=== PATIENT | male | born 1985 | race Caucasian/White ===

== ENCOUNTER 2018-12-03 16:16 | Emergency (ER) | payer BC, OTHER ==
[2018-12-03] MEDS ORDERED: ESCI20TA38 PO (16:25)
--- NOTE | 2018-12-03 16:57 | ER Report ---
History and Physical Time Seen By MD: 16:57 Hx. of Stated Complaint: HAD AN ARGUMENT WITH . SHE CALLED THE POLICE AND WAS EMERGENCY DETAINED HPI/ROS CHIEF COMPLAINT: Suicidal ideation HISTORY OF PRESENT ILLNESS: 33-year-old male patient presents to emergency room with complaint of suicidal ideation. Patient was brought in by the police. History obtained from the police officers indicate that the patient had been h aving a hard time. He lost a child last year in December. Pain is and had an argument and he drove up. [place]. Patient currently lives in [place]. Patient was sending text messages to his as well as to other people saying goodbye and apologizing for any shortcomings he had. He sent text to his stating that he had a belt around his neck and he would feel good to tighten, had his eyes roll back of his head and just go to sleep. He also sent her a message stating that his little girl needed her father to protect her and keep her safe. She became concerned and contacted the police. Patient refuses to answer any questions or to be involved in the history. REVIEW OF SYSTEMS: Unable to obtain as patient refuses at this time. Allergies: Coded Allergies: Penicillins (Verified Allergy, Mild, RASH , 12/03/18) Home Meds Reported Medications Escitalopram Oxalate (LEXAPRO) 20 Mg Tablet, 10 MG PO QDAY, TAB 12/03/18 Past Medical/Surgical History Patient has a past medical history of substance abuse, alcohol abuse, depression. Patient denies any surgical history. Reviewed Nurses Notes: Yes Hx Substance Use Disorder: Yes Hx Alcohol Use: Yes Constitutional Vital Sign - Last 24 Hours 12/03/18 12/03/18 16:17 18:50 Temp 98.2 Pulse 102 85 Resp 16 16 B/P (MAP) 132/97 132/82 (99) Pulse Ox 92 95 O2 Delivery Room Air Room Air Physical Exam I was unable to obtain a physical as patient refused any physical evaluation. Patient's rate speech was slow, very flat, patient refused any eye contact. Medical Decision Making Data Points Result Diagram: 12/03/18 1716 12/03/18 1716 Laboratory Hematology Test 12/03/18 17:16 12/03/18 18:45 Red Blood Count 5.61 M/uL (4.00-5.60) Mean Corpuscular Volume 89.6 fL (80.0-96.0) Mean Corpuscular Hemoglobin 30.8 pg (26.0-33.0) Mean Corpuscular Hemoglobin Concent 34.4 g/dL (32.0-36.0) Red Cell Distribution Width 12.5 % (11.5-14.5) Mean Platelet Volume 9.6 fL (7.2-11.1) Neutrophils (%) (Auto) 50.5 % (39.4-72.5) Lymphocytes (%) (Auto) 37.2 % (17.6-49.6) Monocytes (%) (Auto) 8.7 % (4.1-12.4) Eosinophils (%) (Auto) 0.6 % (0.4-6.7) Basophils (%) (Auto) 3.0 % (0.3-1.4) Nucleated RBC Relative Count (auto) 0.1 /100WBC Neutrophils # (Auto) 2.7 K/uL (2.0-7.4) Lymphocytes # (Auto) 2.0 K/uL (1.3-3.6) Monocytes # (Auto) 0.5 K/uL (0.3-1.0) Eosinophils # (Auto) 0.0 K/uL (0.0-0.5) Basophils # (Auto) 0.2 K/uL (0.0-0.1) Nucleated RBC Absolute Count (auto) 0.00 K/uL Sodium Level 145 mmol/L (137-145) Potassium Level 3.9 mmol/L (3.5-5.0) Chloride Level 105 mmol/L (98-107) Carbon Dioxide Level 25 mmol/L (22-30) Blood Urea Nitrogen 13 mg/dl (9-21) Creatinine 0.90 mg/dl (0.66-1.25) Glomerular Filtration Rate Calc > 60.0 Random Glucose 135 mg/dl (75-110) Calcium Level 9.3 mg/dl (8.4-10.2) Magnesium Level 2.3 mg/dl (1.7-2.2) Total Bilirubin 0.4 mg/dl (0.2-1.3) Aspartate Amino Transf (AST/SGOT) 27 U/L (0-35) Alanine Aminotransferase (ALT/SGPT) 37 U/L (0-56) Alkaline Phosphatase 60 U/L (0-126) Total Protein 7.5 g/dl (6.3-8.2) Albumin 4.9 g/dl (3.5-5.0) Thyroid Stimulating Hormone (TSH) 1.13 uIU/ml (0.46-4.68) Salicylates Level < 10 mg/L Salicylate Last Dose Date unk Acetaminophen Level < 10 ug/ml Serum Alcohol 197 mg/dl Urine Color Yellow Urine Clarity Slightly-cloudy Urine pH 5.0 pH (4.8-9.5) Urine Specific [place] 1.024 Urine Protein Negative mg/dL (NEGATIVE) Urine Glucose (UA) Negative mg/dL (NEGATIVE) Urine Ketones Trace mg/dL (NEGATIVE) Urine Blood Negative (NEGATIVE) Urine Nitrite Negative (NEGATIVE) Urine Bilirubin Negative (NEGATIVE) Urine Urobilinogen Negative mg/dL (0.2-1.9) Urine Leukocyte Esterase Negative (NEGATIVE) Urine RBC 1 /HPF (0-2/HPF) Urine WBC 3 /HPF (0-5/HPF) Urine Squamous Epithelial Cells None /LPF (</=FEW) Urine Amorphous Crystals Few /HPF Urine Bacteria Few /HPF (NONE-FEW) Urine Hyaline Casts Few /LPF (NONE-FEW) Urine Mucus Few /HPF (NONE-FEW) Urine Opiates Screen Negative Urine Barbiturates Screen Negative Ur Tricyclic Antidepressants Screen Negative Urine Phencyclidine Screen Negative Urine Amphetamines Screen Negative Urine Benzodiazepines Screen Negative Urine Cocaine Screen Negative Urine Cannabinoids Screen Negative Chemistry Test 12/03/18 17:16 12/03/18 18:45 White Blood Count 5.3 k/uL (4.5-11.0) Red Blood Count 5.61 M/uL (4.00-5.60) Hemoglobin 17.3 g/dL (14.0-18.0) Hematocrit 50.3 % (42.0-52.0) Mean Corpuscular Volume 89.6 fL (80.0-96.0) Mean Corpuscular Hemoglobin 30.8 pg (26.0-33.0) Mean Corpuscular Hemoglobin Concent 34.4 g/dL (32.0-36.0) Red Cell Distribution Width 12.5 % (11.5-14.5) Platelet Count 220 K/uL (150-450) Mean Platelet Volume 9.6 fL (7.2-11.1) Neutrophils (%) (Auto) 50.5 % (39.4-72.5) Lymphocytes (%) (Auto) 37.2 % (17.6-49.6) Monocytes (%) (Auto) 8.7 % (4.1-12.4) Eosinophils (%) (Auto) 0.6 % (0.4-6.7) Basophils (%) (Auto) 3.0 % (0.3-1.4) Nucleated RBC Relative Count (auto) 0.1 /100WBC Neutrophils # (Auto) 2.7 K/uL (2.0-7.4) Lymphocytes # (Auto) 2.0 K/uL (1.3-3.6) Monocytes # (Auto) 0.5 K/uL (0.3-1.0) Eosinophils # (Auto) 0.0 K/uL (0.0-0.5) Basophils # (Auto) 0.2 K/uL (0.0-0.1) Nucleated RBC Absolute Count (auto) 0.00 K/uL Glomerular Filtration Rate Calc > 60.0 Calcium Level 9.3 mg/dl (8.4-10.2) Magnesium Level 2.3 mg/dl (1.7-2.2) Total Bilirubin 0.4 mg/dl (0.2-1.3) Aspartate Amino Transf (AST/SGOT) 27 U/L (0-35) Alanine Aminotransferase (ALT/SGPT) 37 U/L (0-56) Alkaline Phosphatase 60 U/L (0-126) Total Protein 7.5 g/dl (6.3-8.2) Albumin 4.9 g/dl (3.5-5.0) Thyroid Stimulating Hormone (TSH) 1.13 uIU/ml (0.46-4.68) Salicylates Level < 10 mg/L Salicylate Last Dose Date unk Acetaminophen Level < 10 ug/ml Serum Alcohol 197 mg/dl Urine Color Yellow Urine Clarity Slightly-cloudy Urine pH 5.0 pH (4.8-9.5) Urine Specific [place] 1.024 Urine Protein Negative mg/dL (NEGATIVE) Urine Glucose (UA) Negative mg/dL (NEGATIVE) Urine Ketones Trace mg/dL (NEGATIVE) Urine Blood Negative (NEGATIVE) Urine Nitrite Negative (NEGATIVE) Urine Bilirubin Negative (NEGATIVE) Urine Urobilinogen Negative mg/dL (0.2-1.9) Urine Leukocyte Esterase Negative (NEGATIVE) Urine RBC 1 /HPF (0-2/HPF) Urine WBC 3 /HPF (0-5/HPF) Urine Squamous Epithelial Cells None /LPF (</=FEW) Urine Amorphous Crystals Few /HPF Urine Bacteria Few /HPF (NONE-FEW) Urine Hyaline Casts Few /LPF (NONE-FEW) Urine Mucus Few /HPF (NONE-FEW) Urine Opiates Screen Negative Urine Barbiturates Screen Negative Ur Tricyclic Antidepressants Screen Negative Urine Phencyclidine Screen Negative Urine Amphetamines Screen Negative Urine Benzodiazepines Screen Negative Urine Cocaine Screen Negative Urine Cannabinoids Screen Negative Toxicology Test 12/03/18 17:16 12/03/18 18:45 Salicylates Level < 10 mg/L Salicylate Last Dose Date unk Acetaminophen Level < 10 ug/ml Serum Alcohol 197 mg/dl Urine Opiates Screen Negative Urine Barbiturates Screen Negative Ur Tricyclic Antidepressants Screen Negative Urine Phencyclidine Screen Negative Urine Amphetamines Screen Negative Urine Benzodiazepines Screen Negative Urine Cocaine Screen Negative Urine Cannabinoids Screen Negative Urinalysis Test 12/03/18 18:45 Urine Color Yellow Urine Clarity Slightly-cloudy Urine pH 5.0 pH (4.8-9.5) Urine Specific [place] 1.024 Urine Protein Negative mg/dL (NEGATIVE) Urine Glucose (UA) Negative mg/dL (NEGATIVE) Urine Ketones Trace mg/dL (NEGATIVE) Urine Blood Negative (NEGATIVE) Urine Nitrite Negative (NEGATIVE) Urine Bilirubin Negative (NEGATIVE) Urine Urobilinogen Negative mg/dL (0.2-1.9) Urine Leukocyte Esterase Negative (NEGATIVE) Urine RBC 1 /HPF (0-2/HPF) Urine WBC 3 /HPF (0-5/HPF) Urine Squamous Epithelial Cells None /LPF (</=FEW) Urine Amorphous Crystals Few /HPF Urine Bacteria Few /HPF (NONE-FEW) Urine Hyaline Casts Few /LPF (NONE-FEW) Urine Mucus Few /HPF (NONE-FEW) ED Course/Re-evaluation ED Course Patient was admitted to an exam room, history and physical were obtained. Differential diagnoses were considered. I was unable to obtain a physical exam. Patient was not forthcoming with any history. I did discuss what is going on with the patient's . I did read through the patient's text messages which stated that he was going to strangle himself with a belt, that he needed to [facility], and that he was sorry but his demons win. I believe there is enough evidence to uphold the [facility]. [facility]. I discussed the case with Dr. Tolbert, psychiatrist, who agreed to accept the patient for admission. We discussed the lab work which was unremarkable. Patient had a negative drug screen, he had a blood alcohol of 179. Decision to Disposition Date: Dec 03, 2018 Decision to Disposition Time: 19:10 Depart Departure Latest Vital Signs Vital Signs Date Time Temp Pulse Resp B/P (MAP) Pulse Ox O2 Delivery O2 Flow Rate FiO2 12/03/18 18:50 98.2 85 16 132/82 (99) 95 Room Air Impression: Primary Impression: Suicidal ideation Condition: Condition Unchanged Disposition: XFER TO [facility] CESAR GUPTA Dec 03, 2018 16:57
[2018-12-03 17:24] LABS: PLATELET COUNT, AUTOMATED 220 K/uL (150-450)
[2018-12-03 18:50] VITALS: BP 132/82
--- NOTE | 2018-12-03 22:56 | BHS - Psychiatric Evaluation ---
ER - Title 25 MHE Evaluation Title 25 Evaluation Patient Detained By: Law Enforcement Referral Source: Patient's Date Patient Detained: Dec 03, 2018 Time Patient Detained: 16:04 Date Care Home Expires: Dec 06, 2018 Time Care Home Expires: 16:04 Legal Status: Police Hold: Yes Legal Status: Residence: Other Assessment Data Provided By: Family Member(s) HPI/ROS: Patient has a daughter who approximately one year ago. In his and got into an argument and he wanted to be alone. He does drive to [place] from [place] where he lives. He sent messages to his stating that he was going to wrap about around his neck, but he wanted to discuss his sleep and wake up with his daughter. Also stated that she needed to have somebody and have been protecting her. Admit due to SI or Attempt: Yes Suicide Plan: Has Plan with Access Current Suicide Plan According to the text messages to his patient planned to strangle himself with a belt. Patient refused when asked. Alcohol or Drugs Involved: Yes Current Intoxication Info: Patient had negative drug screen, however had a blood alcohol 179. Is Collateral Info Reliable: Yes Current Home Psych Meds: Patient is on Lexapro. Mental Status Exam General Appearance: Tearful Speech: Clear, Spontaneous, Normal Rate, Normal Rhythm Mood: Dysthmic/Depressed Affect: Withdrawn, Tearful Thought Process: Goal Directed Thought Content: No Homicidal Ideation, No Delusions, No Auditory Halllucinations, No Visual Hallucinations Sensorium: Clear Cognition: Alert & Oriented-Person, Alert & Oriented-Place, Alert & Oriented- Time, Xhjgy-[id number]-Otrhlerog Insight Judgment: Poor Hallucinations: Denies Delusions: Denies Current Risk & History Current Dangerous Risk Assessm: Current Suicide Ideation Past Dangerous Risk Assessm: Other Prior Alcohol/Drug Abuse requested that the patient would seek inpatient treatment for alcoholism. Previous Suicide Attempt: No Previous Attempt Previous Psychiatric Illness: Yes Previous Psychiatric Treatment: Yes Risk Assessment & Disposition Evaluated Risk Assessment: With patient making farewell statements to family members, and friends, in addition to telling his that he was planning to straighten himself belt. I feel the patient is at significant risk for self-harm. As a result, believe that patient should be detained Impression: Primary Impression: Suicidal ideation Meets Mental Illness Req.: Yes Meets Dangerousness Req.: Yes Emergency Care Home to be: Upheld Date of Decision: Dec 03, 2018 Time of Decision: 17:30 Patient is Medically Stable at: Yes Disposition: CESAR GRAHAM Dec 03, 2018 22:56
== END 2018-12-03 18:50 ==
LOC: ER 16:25
DX: R45.851 Suicidal ideations (principal); F32.9 Major depressive disorder, single episode, unspecified
CPT/HCPCS: 80305; 80320; 80329; 81001; 82040; 82247; 82310; 82374; 82435; 82565; 82947; 83735; 84075; 84132; 84155; 84295; 84443; 84450; 84460; 84520; 85025; 99284

== ENCOUNTER 2018-12-03 18:52 | Inpatient (IN) | payer BC, OTHER ==
[~2018-12-03] VITALS: Ht 180.3 cm; Wt 104.3 kg
[~2018-12-03 18:52] MED LIST: ESCI20TA38 PO
[2018-12-03 19:10] VITALS: BP 132/90
[2018-12-03] MEDS ORDERED: LORazepam 2 MG/ML VIAL IM PRN (19:15)
[2018-12-03] MEDS ORDERED: WATER FOR INJECTION 10 ML VIAL IM ONLY PRN (19:15)
[2018-12-03] MEDS ORDERED: OLANZapine 10 MG VIAL IM ONLY PRN (19:15)
[2018-12-03] MEDS ORDERED: DIAZEPAM 10 MG TAB PO PRN (19:15)
[2018-12-03] MEDS ORDERED: MAG HYD/AL HYD/SIMETH 30ML UDC PO PRN (19:15)
[2018-12-03] MEDS ORDERED: diphenhydrAMINE 50 MG/ML VIAL IM PRN (19:15)
[2018-12-03] MEDS: LORazepam 1 MG TAB PO SCH (20:39)
[2018-12-04 06:20] VITALS: BP 136/84
[2018-12-04] MEDS: THIAMINE HCL 100 MG TAB PO SCH (08:32)
[2018-12-04] MEDS: FOLIC ACID 1 MG TAB PO SCH (08:33)
[2018-12-04] MEDS: MULTIVITAMINS PO SCH (08:33)
[2018-12-04] MEDS: ESCITALOPRAM OXALATE 10 MG TAB PO SCH (10:44)
[2018-12-04] MEDS: IBUPROFEN 600 MG TAB PO PRN (13:08)
--- NOTE | 2018-12-04 14:46 | HISTORY AND PHYSICAL ---
DATE OF ADMISSION: December 03, 2018 The patient was interviewed on December 04, 2018, at 9 a.m. for this history and physical. ATTENDING PHYSICIAN Odilia Red MD CHIEF COMPLAINT "I took a road trip from [place], [place]. I hit a couple of bars in [place] and then my called the police." HISTORY OF PRESENT ILLNESS This is the first-ever psychiatric admission for this 33-year old male who is hospitalized on an emergency prison filed by the police because of suicidal ideation. The patient says that he and his argued the night before admission. Then, early the next morning they argued again and he left their home in [place], [place], at around 7 a.m. in an angry state and drove up to [place]. He went to the [facility] at 9:30 a.m. and started drinking. He started texting his suicidal comments including things like stating that he had a belt around his neck and "it would feel good to tighten it to have his eyes roll to the back of his head and to just go to sleep". Because of these suicidal texts, the contacted [place] police, who found him asleep in his car outside of a different bar at around noon. He was intoxicated and was irritable with the police and they did detain him based on the suicidal text that he had sent his . In the emergency room, he was hostile and refused to answer questions and the prison was upheld. This morning, the patient is sober, cooperative and pleasant. He explains that he had a 12-year old daughter who one year ago from respiratory failure secondary to a genetic syndrome that she suffered from her whole life called Vanessa-Taybi syndrome. He has been depressed since that time and has been working with a therapist for about the past year over this. In addition, the patient has problem with moderate alcohol abuse where he will go on binges and abuse alcohol and then he will go months keeping himself sober. The night before admission he had been out drinking and then he and his fought about his drinking. The patient denies any recent worsening of his depression. The patient denies any recent suicidal ideation. He has never had a suicide attempt. He believes that if he had not been intoxicated and angry with his yesterday he would not have been texting her suicidal statements. PAST PSYCHIATRIC HISTORY He has never had a psychiatric hospitalization. He has never had any inpatient or outpatient treatment for alcohol abuse. He has been seeing a therapist names Kandice Melvin at [facility] in [place], [place], for the past year. He finds therapy helpful. He also went back on Lexapro 10 mg daily over a month ago due to depression and he does find it helpful. He had previously been on this medication around the time when his daughter a year ago. He has never had a suicide attempt and never had significant suicidal ideation. He has had passive wishes that things would be better without him and this usually only occurs when he is drinking. FAMILY HISTORY His mother has a history of depression. His biological father had a former history of alcohol abuse. SOCIAL HISTORY The patient was born in [place], [place], to parents who were and then when he was [age] years old. He has four younger sisters. He has good relationships with family members. He graduated from high school and then got jobs playing [employer] in [employer]. He later worked in construction. He got for the first time at the age of 17 and they had three children including their middle daughter, who suffered from Vanessa-Taybi syndrome. He and his got four years ago and they shared custody of the three children. He his current four years ago. His 12-year old daughter one year ago and that was extremely hard on the while family. He and his current have one son together, who is 3 years old, and he also has a stepdaughter. The two families get along well and share custody of their children well. He recently got a promotion at his [email or web address] where he works construction. He enjoys running and playing [employer]. VICTIM ISSUES He denies history of physical or sexual abuse. SUBSTANCE ABUSE HISTORY He first drank at the age of 13 and over the past ten years his alcohol abuse got worse. He has had multiple fairly extensive periods of sobriety including the entire month of October but then over the past week he has gone out drinking on three separate occasions. He rarely uses a cannabis edible to help him sleep but says this is less than once a month. He denies abuse of any other substances. LEGAL HISTORY He has been cited for public intoxication three times and is not currently under any pending charges. PHYSICAL EXAMINATION Please see the emergency room physician's report. VITAL SIGNS: Temperature 98.1, pulse 88, respiratory rate 16, blood pressure 132/90, pulse ox 90 on room air. LABORATORY DATA CBC is within normal limits. Chemistry panel is within normal limits other than a random glucose high at 135 and a magnesium high at 2.3. Urinalysis shows trace ketones and is otherwise within normal limits. His tox screen was negative. Serum alcohol was 197. MENTAL STATUS EXAM The patient was well-groomed and cooperative. He displayed good eye contact and normal psychomotor activity. He used humor in a healthy way to diffuse tension and was able to be self-deprecating at times without getting too down on himself. He did seem to be on the verge of tears a couple of times when he was talking about the of his daughter a year ago. Speech was normal in rate, tone and volume. Mood and affect were dysphoric but he was able to show full range appropriate to the conversation. Thought process was logical and goal- directed. Thought content was negative for auditory hallucinations, visual hallucinations, suicidal ideation, homicidal ideation and delusions. He was alert and fully oriented to person, place, time and situation. Memory was intact for immediate, recent and remote recall. Intelligence was average based on interview. Insight and judgment were good. ASSESSMENT 1. Alcohol use disorder, moderate. 2. Substance-induced depressive disorder. PLAN He is admitted to [facility] and is being maintained on suicide precautions. Initially, we did start CIWA protocol but once it became clear that his drinking is not substantial enough to cause a risk of withdrawal we discontinued the CIWA protocol. We did decide as a team that this patient does not meet the criteria to go forward to a first hearing on his emergency prison. This is because the patient's suicidal statements were made when he was intoxicated, he does not have any recent history of significant increasing depression nor suicidal ideation, he has never had a suicide attempt, we have obtained collateral information from his , who confirms this history, his affect and demeanor on the Unit once he has sobered up are completely appropriate, polite and he does not display significant depressive symptoms. We will work with the patient in the individual and group therapy, focusing on alcohol abuse and its connection to depression and suicidal threats. We will work with him to establish outpatient care since he is interested in possibly pursuing either a 30-day inpatient rehab or an intensive outpatient program. We will monitor for any presence of depressive symptoms and we will monitor for any suicidal ideation. We will re-start his Lexapro at 10 mg q.a.m. His estimated length of stay will be three to five days. MTDD
[2018-12-04] MEDS: LORazepam 1 MG TAB PO SCH (20:15)
[2018-12-05 06:06] VITALS: BP 122/87
[2018-12-05] MEDS: MULTIVITAMINS PO SCH (08:22)
[2018-12-05] MEDS: THIAMINE HCL 100 MG TAB PO SCH (08:23)
[2018-12-05] MEDS: FOLIC ACID 1 MG TAB PO SCH (08:23)
[2018-12-05] MEDS: ESCITALOPRAM OXALATE 10 MG TAB PO SCH (08:23)
[2018-12-05 13:15] VITALS: BP 125/90
--- NOTE | 2018-12-05 13:17 | BHS Progress Note ---
S - Subjective Progress Notes Subjective Pt seen in treatment team meeting with his Magdalena on speaker phone. Pt reports depression at 4/10 and anxiety at 4/10. Denies SI. Denies alcohol cravings. He and have discussed and he would like to pursue a 30 inpatient rehab admission, which we recommend. points out that when he relapses, he never seems to be able to identify a trigger, and she hopes more intensive treatment will help with this. He has not found AA helpful in the past, he has a comorbid depressive disorder, so rehab is highly recommended. Pt tolerating lexapro well without side effects. Slept OK last night. Will work on arranging direct transfer to rehab. Suicidal Ideation: None Homicidal Ideation: None [facility] - Objective Physical Exam Vital Signs Vital Signs 12/05/18 06:06 Temp 98.3 Pulse 57 Resp 15 B/P (MAP) 122/87 (99) Pulse Ox 92 O2 Delivery Room Air Muscle Strength and Tone: WNL Gait and Station: Steady BHS Medications Reviewed: Side Effects, Benefits of Medication, Risks Allergies Reviewed: Yes Mental Status Exam General Appearance: Casual, Well Groomed, Cooperative, Polite, Good Interaction Speech: Clear, Delayed Mood: Dysthmic/Depressed Affect: Calm, Sad Thought Process: Organized, Logical, Goal Directed Thought Content: No Suicidal Ideation, No Homicidal Ideation, No Delusions, No Auditory Halllucinations, No Visual Hallucinations, No Thought Broadcasting, No Ideas of Reference, No Obsessions, No Compulsions, No Other Sensorium: Clear Cognition: Alert & Oriented-Person, Alert & Oriented-Place, Alert & Oriented- Time, Hsxxr-Cdbitlfl-Leouudhds Memory: Immediate, Recent, Remote Intelligence: Average Insight Judgment: Fair [facility] Assessment and Plan [id number] Encounter Date: Dec 05, 2018 Lvih-cy-Nrug Encounter Time: 09:30 [facility] Plan: Necessary Precautions, Individual/Group Therapy, Admin/Titrate Meds, Educate Patient Tobacco Medications: Started Multpiple Antipsychotics Used: No Problems: (1) Alcohol use disorder, moderate, dependence (2) Substance induced mood disorder ROBBIE MOORE MD Dec 05, 2018 13:17
[2018-12-05] MEDS ORDERED: ESCI10TA8 PO (20:30)
[2018-12-05] MEDS: LORazepam 1 MG TAB PO SCH (20:44)
[2018-12-05 22:26] VITALS: BP 130/95
[2018-12-06 06:43] VITALS: BP 113/78
[2018-12-06] MEDS: FOLIC ACID 1 MG TAB PO SCH (08:18)
[2018-12-06] MEDS: MULTIVITAMINS PO SCH (08:19)
[2018-12-06] MEDS: THIAMINE HCL 100 MG TAB PO SCH (08:19)
[2018-12-06] MEDS: ESCITALOPRAM OXALATE 10 MG TAB PO SCH (08:19)
[2018-12-06] MEDS: IBUPROFEN 600 MG TAB PO PRN (09:53)
[2018-12-06] MEDS ORDERED: ESCI20TA38 PO (14:34)
--- NOTE | 2018-12-06 16:07 | BHS Discharge Summary ---
[facility] Discharge Summary Uxsa-eb-Jsnq Encounter Date: Dec 06, 2018 Gtqe-ce-Twwx Encounter Time: 11:00 Reason-Hosp/Final Diag (DSM-V): (1) Alcohol use disorder, moderate, dependence Hospital Course & Plan: HISTORY OF PRESENT ILLNESS This is the first-ever psychiatric admission for this 33-year old male who is hospitalized on an emergency senior care filed by the police because of suicidal ideation. The patient says that he and his argued the night before admission. Then, early the next morning they argued again and he left their h ome in [place], [place], at around 7 a.m. in an angry state and drove up to [place]. He went to the [facility] at 9:30 a.m. and started drinking. He started texting his suicidal comments including things like stating that he had a belt around his neck and "it would feel good to tighten it to have his eyes roll to the back of his head and to just go to sleep". Because of these suicidal texts, the contacted [place] police, who found him asleep in his car outside of a different bar at around noon. He was intoxicated and was irritable with the police and they did detain him based on the suicidal text that he had sent his . In the emergency room, he was hostile and refused to answer questions and the senior care was upheld. This morning, the patient is sober, cooperative and pleasant. He explains that he had a 12-year old daughter who one year ago from respiratory failure secondary to a genetic syndrome that she suffered from her whole life called Vanessa-Taybi syndrome. He has been depressed since that time and has been working with a therapist for about the past year over this. In addition, the patient has problem with moderate alcohol abuse where he will go on binges and abuse alcohol and then he will go months keeping himself sober. The night before admission he had been out drinking and then he and his fought about his drinking. The patient denies any recent worsening of his depression. The patient denies any recent suicidal ideation. He has never had a suicide attempt. He believes that if he had not been intoxicated and angry with his yesterday he would not have been texting her suicidal statements. PAST PSYCHIATRIC HISTORY He has never had a psychiatric hospitalization. He has never had any inpatient or outpatient treatment for alcohol abuse. He has been seeing a therapist names Kandice Melvin at [facility] in [place], [place], for the past year. He finds therapy helpful. He also went back on Lexapro 10 mg daily over a month ago due to depression and he does find it helpful. He had previously been on this medication around the time when his daughter a year ago. He has never had a suicide attempt and never had significant suicidal ideation. He has had passive wishes that things would be better without him and this usually only occurs when he is drinking. HOSPITAL COURSE Pt admitted to [facility] and maintained on suicide precautions. Initially we ordered an alcohol detox with [facility] protocol, but we DC'd it after nursing obtained clear history of his drinking pattern, which is binge drinking, entire month of October he was sober. He denied SI throughout his hospital stay; it was clear that as long as he is sober suicidal ideation is not the problem. We restarted his lexapro which was well tolerated, we did some grief work around the loss of his daughter, and focused on sobriety skills. We held family meeting with on speaker phone, and decision was made to pursue a 30 day rehab admission. Pt was accepted at the [facility] program in [place], [place]. He was discharged in stable condition with no suicidal ideation. (2) Substance induced mood disorder Physical Exam Latest Vital Signs Vital Signs 12/05/18 12/06/18 13:15 06:43 Temp 97.9 Pulse 65 Resp 15 B/P (MAP) 113/78 (90) Pulse Ox 92 O2 Delivery Room Air Mental Status Exam General Appearance: Casual, Well Groomed, Good Eye Contact, Cooperative, Polite, Good Interaction Speech: Clear, Spontaneous, Normal Rate, Normal Rhythm, Normal Volume, Normal Tone Mood: Euthymic Affect: Full and Appropriate, Calm, Sad (still some sadness when discussing the of his daughter last year.) Thought Process: Organized, Logical, Goal Directed Thought Content: No Suicidal Ideation, No Homicidal Ideation, No Delusions, No Auditory Halllucinations, No Visual Hallucinations, No Thought Broadcasting, No Ideas of Reference, No Obsessions, No Compulsions, No Other Sensorium: Clear Cognition: Alert & Oriented-Person, Alert & Oriented-Place, Alert & Oriented- Time, Tkuwa-Ftvmuddo-Yzbsqpjdh Memory: Immediate, Recent, Remote Intelligence: Average Insight Judgment: Good Departure Item Value Date Time White Blood Count 5.3 k/uL 12/03/18 1716 Red Blood Count 5.61 M/uL H 12/03/18 1716 Hemoglobin 17.3 g/dL 12/03/18 1716 Hematocrit 50.3 % 12/03/18 1716 Mean Corpuscular Volume 89.6 fL 12/03/18 1716 Mean Corpuscular Hemoglobin 30.8 pg 12/03/18 1716 Mean Corpuscular Hemoglobin Concent 34.4 g/dL 12/03/18 1716 Red Cell Distribution Width 12.5 % 12/03/18 1716 Platelet Count 220 K/uL 12/03/18 1716 Sodium Level 145 mmol/L 12/03/18 1716 Potassium Level 3.9 mmol/L 12/03/18 1716 Chloride Level 105 mmol/L 12/03/18 1716 Carbon Dioxide Level 25 mmol/L 12/03/18 1716 Blood Urea Nitrogen 13 mg/dl 12/03/18 1716 Creatinine 0.90 mg/dl 12/03/18 1716 Glomerular Filtration Rate Calc > 60.0 12/03/18 1716 Random Glucose 135 mg/dl H 12/03/18 1716 Calcium Level 9.3 mg/dl 12/03/18 1716 Magnesium Level 2.3 mg/dl H 12/03/18 1716 Total Bilirubin 0.4 mg/dl 12/03/18 1716 Aspartate Amino Transf (AST/SGOT) 27 U/L 12/03/18 1716 Alanine Aminotransferase (ALT/SGPT) 37 U/L 12/03/18 1716 Alkaline Phosphatase 60 U/L 12/03/18 1716 Total Protein 7.5 g/dl 12/03/18 1716 Albumin 4.9 g/dl 12/03/18 1716 Thyroid Stimulating Hormone (TSH) 1.13 uIU/ml 12/03/18 1716 Urine Color Yellow 12/03/18 1845 Urine Clarity Slightly-cloudy 12/03/181844 Urine pH 5.0 pH 12/03/18 1845 Urine Specific [place] 1.024 12/03/18 1845 Urine Protein Negative mg/dL 12/03/18 1845 Urine Glucose (UA) Negative mg/dL 3/11/19 1845 Urine Ketones Trace mg/dL 12/03/18 1845 Urine Blood Negative 12/03/18 1845 Urine Nitrite Negative 12/03/18 184 Urine Bilirubin Negative 12/03/18 1845 Urine Urobilinogen Negative mg/dL 12/03/18 1845 Urine Leukocyte Esterase Negative 12/03/18 1845 Urine RBC 1 /HPF 12/03/18 1845 Urine WBC 3 /HPF 12/03/18 1845 Urine Squamous Epithelial Cells None /LPF 12/03/18 1845 Urine Amorphous Crystals Few /HPF 12/03/18 1845 Urine Bacteria Few /HPF 12/03/18 1845 Urine Hyaline Casts Few /LPF 12/03/18 1845 Urine Mucus Few /HPF 12/03/18 1845 Salicylates Level < 10 mg/L 12/03/18 1716 Salicylate Last Dose Date unk 12/03/18 171 Urine Opiates Screen Negative 12/03/18 1845 Acetaminophen Level < 10 ug/ml 12/03/18 1716 Urine Barbiturates Screen Negative 12/03/18 1845 Ur Tricyclic Antidepressants Screen Negative 12/03/18 1845 Urine Phencyclidine Screen Negative 12/03/18 1845 Urine Amphetamines Screen Negative 12/03/18 1845 Urine Benzodiazepines Screen Negative 12/03/18 1845 Urine Cocaine Screen Negative 12/03/18 1845 Urine Cannabinoids Screen Negative 12/03/18 1845 Serum Alcohol 197 mg/dl 12/03/18 1716 Condition: Improved Discharge Comment Pt will travel with his to [facility] in [place], [place] tomorrow. Discharge to: Rehab Facility Discharge Instructions Home Meds Reported Medications Escitalopram Oxalate (LEXAPRO) 20 Mg Tablet, 10 MG PO QAM, TAB 12/06/18 Discontinued Reported Medications Escitalopram Oxalate (LEXAPRO) 20 Mg Tablet, 10 MG PO QDAY, TAB 12/03/18 Multpiple Antipsychotics Used: No Diet: Regular Activity: As Tolerated Special Instructions: PROBLEM:Alcohol Use D.O. Moderate, Substance induced Depressive D.O. GOAL: Verbalize Safety. Verbalize Positive Future Plans. Use healthy coping mechanisms to deal with life stressors. INSTRUCTIONS: Take medications as prescribed. Follow up with outpatient provider for medication management. Follow up with outpatient therapy. Call Crisis Line should symptoms return @ [phone]. ROBBIE MOORE MD Dec 06, 2018 16:07
== END 2018-12-06 16:18 | disposition home or self-care (01) | DRG 897 ==
LOC: BHS 18:52
PROVIDERS: ADMIT Psychiatry & Neurology Psychiatry; ATTEND Psychiatry & Neurology Psychiatry
DX: F10.230 Alcohol dependence with withdrawal, uncomplicated (principal); F10.24 Alcohol dependence with alcohol-induced mood disorder; Y90.6 Blood alcohol level of 120-199 mg/100 ml; Z63.4 Disappearance and death of family member; Z63.0 Problems in relationship with spouse or partner; Z81.1 Family history of alcohol abuse and dependence; Z81.8 Family history of other mental and behavioral disorders